=== PATIENT | female | born 1960 | race Caucasian/White ===

== ENCOUNTER 2019-04-02 09:12 | Observation (INO) ==
--- OUTSIDE RECORDS SUMMARY | 2019-04-02 09:17 | External Medical Summary | Continuity of Care Document ---
:1960 Author Name Rc Rivera, Provider Address Unavailable Unavailable , Care Team Providers Name Role Phone Unavailable Unavailable Unavailable CassieMaria Isabel Evans Unavailable [email or web address] Unavailable Unavailable Unavailable Unavailable Unavailable Problems Dyslipidemia (272.4) (E78.5) Diabetes mellitus (250.00) (E11.9) Dysuria (788.1) (R30.0) Allergies and Adverse Reactions No Known Drug Allergies (Allergy) Medications Amaryl 2 MG Oral Tablet; TAKE 1 TABLET DAILY WITH BREAKFAST. , M.D. Refills: 0 Advil CAPS; TAKE CAPSULE PRN , M.D. Refills: 0 Vitamin B Complex CAPS , M.D. Refills: 0 Vitamin B12 TABS , M.D. Refills: 0 Vitamin D3 5000 UNIT Oral Tablet , M.D. Refills: 0 metFORMIN HCl - 500 MG Oral Tablet; TAKE 2 TABLETS TWI CE DAILY CassieFORTUNATO Start: 17-May-2011 Quantity: 120 Refills: 5 OneTouch Test STRP; patient test 4-6 times daily. Tano Matthews Start: 17-May-2011 Quantity: 2 100 EA Box Refills: 5 OneTouch UltraSoft Lancets; tests 6 times a day. JAYLA Matthews NP Start: 17-May-2011 Quantity: 2 100 EA Box Refills: 5 Ciprofloxacin HCl - 500 MG Oral Tablet; TAKE 1 TABLET EVERY 12 HOURS FOR 10 DAYS. FORTUNATO Matthews Start: 26-Nov-2011 Quantity: 20 Refills: 0 Procedures Procedures not documented Immunizations Immunizations not documented Social History - Smoking Status Smoker. current status unknown Plan of Treatment Planned Observations Planned Goals not documented Results No Known Results Results not documented
--- NOTE | 2019-04-02 09:52 | XRay Report ---
SINGLE VIEW CHEST CLINICAL HISTORY: Stroke-like symptoms. FINDINGS: An AP, portable, upright chest radiograph is obtained. No prior studies are available for c omparison at the time of dictation. The examination is degraded by portable technique and patient rot ation. The cardiomediastinal silhouette is unremarkable. The lungs and pleural spaces are clear. No pneumothorax is seen. The bony thorax is grossly intact. IMPRESSION: No active disease in the chest. Electronically signed by: Shukri Trinh M.D. 04/02/2019 9:51 AM
[2019-04-02 09:54] LABS: Basophils # (auto) 0.03 K/uL (0-0.2); Basophils % (auto) 0.6 %; Eosinophils # (auto) 0.09 K/uL (0-0.5); Eosinophils % (auto) 1.8 %; Hematocrit (blood only) 41.8 % (37-47); Hemoglobin 14.6 g/dL (12.0-16.0); Lymphocytes # (auto) 1.54 K/uL (1.2-3.4); Mean Corpuscular Hgb Conc 34.9 g/dL (32-36); Mean Corpuscular Volume 79.2 fL (80-100); Mean Platelet Volume 8.8 fL (7.4-10.4); Monocytes # (auto) 0.37 K/uL (0.11-0.59); Monocytes % (auto) 7.2 %; Neutrophils # (auto) 3.11 K/uL (1.4-6.5); Neutrophils % (auto) 60.4 %; Platelet Count 250 K/uL (130-400); RDW Coefficient of Variation 14.9 % (11.5-14.5); RDW Standard Deviation 43.2 fL (36.4-46.3); Red Blood Count 5.28 M/uL (4.2-5.4); White Blood Count 5.14 K/uL (4.8-10.8)
[2019-04-02 10:06] LABS: Partial Thromboplastin Ratio 1.1; Partial Thromboplastin Time 29.3 Seconds (21.0-31.0); Prothrombin Time 10.4 Seconds (9.0-12.0)
[2019-04-02 10:09] LABS: Alanine Aminotransferase 21 U/L (12-78); Albumin Level 4.1 gm/dl (3.4-5.0); Aspartate Aminotransferase 12 U/L (15-37); BUN Creatinine Ratio 23.8 (10-20); Blood Urea Nitrogen 15 mg/dl (7-18); Calcium 9.1 mg/dl (8.5-10.1); Carbon Dioxide 24 mmol/L (21-32); Chloride 106 mmol/L (98-107); Creatinine Clr Calc Pharmacy 89.7 ml/min; Est GFR (African American) 116.2; Est GFR (Non-African American) 100.3; Glucose 157 mg/dl (70-99); Magnesium 2.1 mg/dl (1.8-2.4); Potassium 3.9 mmol/L (3.5-5.1); Sodium 138 mmol/L (136-145)
--- NOTE | 2019-04-02 10:10 | CT Scan Report ---
HEAD CT NONCONTRAST CT DOSE: 537.48 mGy.cm HISTORY: Stroke symptoms. Stroke evaluation TECHNIQUE: Multiaxial CT images of the head were performed without the use of intravenous contrast. A utomated exposure control was utilized for this study. A dose lowering technique was utilized adheri ng to the principles of ALARA. Comparison: None. Findings: The paranasal sinuses and mastoid air cells are clear. The calvarium and skull base are int act. The ventricles and sulci are within normal limits. There is no mass, hematoma, midline shift, or acute infarct. Impression: No acute intracranial abnormality. Electronically signed by: Lazaro Parry M.D. 04/02/2019 10:09 AM
[2019-04-02 10:14] LABS: Albumin Globulin Ratio 1.3 (0.9-2); Alkaline Phosphatase 37 U/L (45-117); Bilirubin,Total 0.4 mg/dl (0.2-1); Globulin 3.1 gm/dl (2.5-4.0); Total Protein 7.2 gm/dl (6.4-8.2); Troponin I < 0.015 ng/ml (0-0.045)
[2019-04-02] MEDS ORDERED: KETOROLAC TROMETHAMINE 15 MG/ML VIAL IV ONE (11:15)
[2019-04-02] MEDS ORDERED: ASPIRIN CHEW 324 MG PO STA (11:15)
[2019-04-02 11:38] LABS: Appearance Urine Clear (Clear); Bilirubin Urine Negative (Negative); Blood Urine Negative (Negative); Color Urine Yellow; Glucose Urine UA Negative (Negative); Ketones Urine 1+ (Negative); Leukocyte Esterase Urine Negative (Negative); Nitrite Urine Negative (Negative); Protein Urine Negative (Negative); Specific Gravity Urine 1.014 (1.000-1.030); Urobilinogen Urine Negative (Negative); pH Urine 5.5 (4.5-7.5)
--- NOTE | 2019-04-02 14:05 | History & Physical Report ---
Date of Service April 02, 2019 Assessment & Plan (1) TIA (transient ischemic attack): Presented with the strokelike symptoms like slurred speech, difficulty finding words, following instructions Associated with tunnel vision All the symptoms resolved in the emergency room Noted to have very high blood pressure on presentation of systolic 196 and diastolic 82 TIA and rule out stroke admit to telemetry Carotid ultrasound to rule out stenosis, transthoracic echo and MRI of the brain will be done Check lipid profile in a.m. Received aspirin in the emergency room and like to be continued as an outpatient Neurology consult Present on Admission?: Yes (2) Migraine: History of migraine Usually gets worse in the form of tunnel vision Controlled with ibuprofen Current presentation may be secondary to migrainous aura (3) Diet-controlled diabetes mellitus: Has been on a special diet to control diabetes Cannot tolerate any oral medication Will check hemoglobin A1c Has lost about 15 pounds since last 1 (4) Hypertension: No history of hypertension Noted to have very high blood pressure on presentation of systolic more than 1 90 Blood pressure has been coming down Will not put any medications for now DVT prophylaxis SCDs CODE STATUS Full History of Present Illness Chief Complaint: Slurred speech, difficulty finding words with tunnel vision Primary Care Provider: Faustino Mason MD very high blood pressureShe is 58 years old female with significant past medical history of diet-controlled diabetes on a weight reducing diet, migraine and strong family history of stroke has been complaining of tunnel vision associated with slurred speech and difficulty in finding 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 This time she has had before in the form of tunnel vision and did not go away with use of ibuprofen and associated with slurred speech, difficulty in finding words for about an hour. He did not have any other neuro symptoms associated with it, denies any weakness involving any side but did complain numbness involving the right fingers and bilateral legs. No nausea no vomiting and no problem with ambulation. In the ER she was noted to have a very high blood pressure of 196/82 She was admitted to telemetry unit for continuation of care Allergies Allergy/AdvReac Type Severity Reaction Status Date / Time No Known Allergies Allergy Unknown Verified 04/02/19 09:58 Home Medications Home Medications Medication Instructions Recorded Confirmed Type ibuprofen [Advil] 200 mg PO Q6H PRN 04/02/19 04/02/19 History Past Med/Surg History Medical History Diet-controlled diabetes mellitus Migraine (Chronic) Social History Preferred Language: Puerto Rican Feels Safe at Home: Yes Smoking Status: Never smoker Review of Systems Review of Systems: All systems reviewed & are unremarkable except as noted in HPI & below Physical Exam Physical Exam: No apparent distress at rest Constitutional: well developed and well nourished; no acute distress and not ill appearing Eyes: PERRL, conjunctivae normal, anicteric sclerae ENMT: external ear and nose normal, oropharynx normal Neck: trachea midline, no thyromegaly Respiratory: normal respiratory effort; no respiratory distress Cardiovascular: Rate/Rhythm: regular rate and regular rhythm Heart Sounds: no murmur Gastrointestinal (Abdomen): Inspection/Auscultation: abdomen normal to inspection Musculoskeletal: No acute arthritis involving any joints Neurologic: moves all extremities; no focal motor deficits Speech / Cognition: normal speech Alert, awake and oriented x3. Psychiatric: A+Ox3, euthymic affect Lymphatic: no cervical or axillary lymphadenopathy Results & Data Vital Signs (Past 12 Hours) Vital Signs Temp Pulse Pulse Resp BP BP Pulse Ox 04/02/19 13:42 69 20 162/84 H 99 04/02/19 11:14 87 16 155/97 H 98 04/02/19 09:15 36.6 C 83 18 196/82 H 99 Laboratory Results Short CBC 04/02/19 Range/Units 09:41 WBC 5.14 (4.8-10.8) K/uL Hgb 14.6 (12.0-16.0) g/dL Hct 41.8 (37-47) % Plt Count 250 (130-400) K/uL BMP 04/02/19 09:41 Sodium 138 Potassium 3.9 Chloride 106 Carbon Dioxide 24 BUN 15 Creatinine 0.63 Glucose 157 H Calcium 9.1 Cardiac Enzymes 04/02/19 Range/Units 09:41 Troponin I < 0.015 (0-0.045) ng/ml Liver Function 04/02/19 Range/Units 09:41 Total Bilirubin 0.4 (0.2-1) mg/dl AST 12 L (15-37) U/L ALT 21 (12-78) U/L Alkaline Phosphatase 37 L (45-117) U/L Albumin 4.1 (3.4-5.0) gm/dl Urine 04/02/19 Range/Units 11:26 Urine Color Yellow Urine Appearance Clear (Clear) Urine pH 5.5 (4.5-7.5) Ur Specific [place] 1.014 (1.000-1.030) Urine Protein Negative (Negative) Urine Glucose (UA) Negative (Negative) Code Status & VTE Plan VTE Prophylaxis Plan VTE Prophylaxis will be ordered: Yes
--- NOTE | 2019-04-02 14:05 | Emergency Department Note ---
Entered by Tayler Collazo acting as a scribe for Raheem Anderson DO History of Present Illness General Chief complaint: Neuro Symptoms/Deficit Stated complaint: POSSIBLE MINI STROKE Source: patient History of Present Illness Provider complaint: headache Onset (ago): day(s) 1 Location: head Severity: similar to prior episodes Pain Consistency: + constant Maximum Pain Intensity: 0 Relieved By: not by medication (Advil) Associated symptoms: + confusion and + other (+numbness right fingers, +di fficulty finding words, +blurred vision) The patient is a 58 year old female who presents to the Emergency Room with complaints of a constant headache. The patient states that yesterday at 1700 she developed a migraine that caused slight blurred vision. 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 The patient states that after she started to develop confusion and numbness in her right fingers on the palm side. She reports that she could not develop words, which is unusual. She notes that she currently does not have a headache, but she still is having difficulty finding words. The patient reports that she has a history of migraines and that her blurred vision is normal during her episodes. She denies any other symptoms. She reports that she does not take any blood pressure medication. Home Medications Home Medications Medication Instructions Recorded Confirmed Type ibuprofen [Advil] 200 mg PO Q6H PRN 04/02/19 04/02/19 History Allergies Allergy/AdvReac Type Severity Reaction Status Date / Time No Known Allergies Allergy Unknown Verified 04/02/19 09:58 Past Med/Surg History Medical History Diet-controlled diabetes mellitus Migraine (Chronic) Social History Preferred Language: Nepali Feels Safe at Home: Yes Smoking Status: Never smoker Review of Systems See HPI for pertinent positives & negatives. and A total of 10 systems reviewed and were otherwise negative Physical Exam Vital Signs Vital Signs - 24 hr 04/02/19 09:15 04/02/19 11:14 04/02/19 13:42 Temperature 36.6 C Temperature Source Oral Sepsis Recent Fever Within 48 Hours No Sepsis Action Taken by Nursing No Action Required Pulse Rate 83 Pulse Rate [Apical] 87 69 Respiratory Rate 18 16 20 Respiratory Effort / Characteristics Non-Labored Respiratory Depth Normal Respiratory Pattern Regular Blood Pressure 196/82 H Blood Pressure [Left Arm] 155/97 H 162/84 H Blood Pressure Mean 120 Blood Pressure Mean [Left Arm] 116 110 Pulse Oximetry 99 98 99 Oxygen Delivery Method Room Air Room Air Room Air GENERAL: alert, sitting up in bed, talking in full sentences, wearing glasses EYE EXAM: normal conjunctiva OROPHARYNX: no exudate, no erythema, lips, buccal mucosa, and tongue normal and mucous membranes are moist NECK: supple, no nuchal rigidity, no adenopathy, non-tender LUNGS: Clear to auscultation. Normal chest wall mechanics HEART: no murmurs, S1 normal and S2 normal ABDOMEN: abdomen soft, non-tender, normo-active bowel sounds, no masses, no rebound or guarding. BACK: Back is symmetrical on inspection and there is no deformity, no midline tenderness, no CVA tenderness. SKIN: no rashes and no bruising UPPER EXTREMITIES: upper extremities are grossly normal. LOWER EXTREMITIES: No pitting edema. NEURO EXAM: Normal sensorium, cranial nerves II-XII intact, normal speech, no weakness of arms, no weakness of legs. No drift. Finger to nose intact. Gross sensation intact. Course ED COURSE: Vital signs were reviewed and showed hypertension. The patients medical record was reviewed The above diagnostic studies were performed and reviewed. ED treatments and interventions as stated above. 0927: The patient was evaluated in room B9. A complete history and physical examination was performed. 1130: I reevaluated the patient and her symptoms has resolved. 1215: I discussed the patient's case with Radha Bassett PA-C [facility], [facility] will accept the patient for further evaluation. 1225: I reevaluated the patient with Dr. Lewis [facility], at bedside, the patient is unsure if she wants to stay as inpatient. 1230: Upon reevaluation, the patient is resting comfortably. I discussed my findings with the patient and she understands and agrees with the treatment plan. Based on the patients age, coexisting illnesses, exam and lab findings the decision to treat as an inpatient was made. The patient remained stable while under my care. The patient will be evaluated for further management. Administered Medications Discontinued Medications Aspirin (Aspirin) 324 mg PO NOW STA Stop: 04/02/19 11:16 Last Admin: 04/02/19 11:20 Dose: 324 mg Documented by: [id number] Ketorolac Tromethamine (Toradol) 15 mg IV NOW ONE Stop: 04/02/19 11:16 Last Admin: 04/02/19 11:20 Dose: 15 mg Documented by: [id number] Medical Decision Making Differential Diagnosis Differential Diagnosis includes but is not limited to dehydration, stroke, anemia, hypoglycemia, hyponatremia, hypernatremia, urinary tract infection, pneumonia, bronchitis, sepsis, gastroenteritis, additional abdominal pathology, metabolic abnormalities and infections. Medical Records Attestation: I reviewed the patient's medical records. Home Medications Current Medication List: was personally reviewed by me Laboratory Data Attestation: I reviewed the patient's lab results. Result diagrams: 04/02/19 09:41 04/02/19 09:41 Lab Results 04/02/19 04/02/19 04/02/19 Range/Units 09:40 09:41 09:41 WBC 5.14 (4.8-10.8) K/uL RBC 5.28 (4.2-5.4) M/uL Hgb 14.6 (12.0-16.0) g/dL Hct 41.8 (37-47) % MCV 79.2 L (80-100) fL MCH 27.7 (25-34) pg MCHC 34.9 (32-36) g/dL RDW Std Deviation 43.2 (36.4-46.3) fL RDW Coeff of Shanique 14.9 H (11.5-14.5) % Plt Count 250 (130-400) K/uL MPV 8.8 (7.4-10.4) fL Immature Gran % (Auto) 0.0 % Neut % (Auto) 60.4 % Lymph % (Auto) 30.0 % [place] % (Auto) 7.2 % Eos % (Auto) 1.8 % Baso % (Auto) 0.6 % Immature Gran # (Auto) 0.00 (0.00-0.02) K/uL Neut # (Auto) 3.11 (1.4-6.5) K/uL Lymph # (Auto) 1.54 (1.2-3.4) K/uL [place] # (Auto) 0.37 (0.11-0.59) K/uL Eos # (Auto) 0.09 (0-0.5) K/uL Baso # (Auto) 0.03 (0-0.2) K/uL PT 10.4 (9.0-12.0) Seconds INR 1.0 (0.9-1.1) APTT 29.3 (21.0-31.0) Seconds PTT Ratio 1.1 Sodium (136-145) mmol/L Potassium (3.5-5.1) mmol/L Chloride (98-107) mmol/L Carbon Dioxide (21-32) mmol/L Anion Gap (3-11) BUN (7-18) mg/dl Creatinine (0.6-1.2) mg/dl Est Cr Clr Drug Dosing ml/min Est GFR ( Amer) Est GFR (Non-Af Amer) BUN/Creatinine Ratio (10-20) Glucose (70-99) mg/dl POC Glucose 159 H (70-99) Calcium (8.5-10.1) mg/dl Magnesium (1.8-2.4) mg/dl Total Bilirubin (0.2-1) mg/dl AST (15-37) U/L ALT (12-78) U/L Alkaline Phosphatase (45-117) U/L Troponin I (0-0.045) ng/ml Total Protein (6.4-8.2) gm/dl Albumin (3.4-5.0) gm/dl Globulin (2.5-4.0) gm/dl Albumin/Globulin Ratio (0.9-2) Urine Color Urine Appearance (Clear) Urine pH (4.5-7.5) Ur Specific [place] (1.000-1.030) Urine Protein (Negative) Urine Glucose (UA) (Negative) Urine Ketones (Negative) Urine Blood (Negative) Urine Nitrite (Negative) Urine Bilirubin (Negative) Urine Urobilinogen (Negative) Ur Leukocyte Esterase (Negative) POC Ur Test (NEG) 04/02/19 04/02/19 04/02/19 Range/Units 09:41 11:26 11:26 WBC (4.8-10.8) K/uL RBC (4.2-5.4) M/uL Hgb (12.0-16.0) g/dL Hct (37-47) % MCV (80-100) fL MCH (25-34) pg MCHC (32-36) g/dL RDW Std Deviation (36.4-46.3) fL RDW Coeff of Shanique (11.5-14.5) % Plt Count (130-400) K/uL MPV (7.4-10.4) fL Immature Gran % (Auto) % Neut % (Auto) % Lymph % (Auto) % [place] % (Auto) % Eos % (Auto) % Baso % (Auto) % Immature Gran # (Auto) (0.00-0.02) K/uL Neut # (Auto) (1.4-6.5) K/uL Lymph # (Auto) (1.2-3.4) K/uL [place] # (Auto) (0.11-0.59) K/uL Eos # (Auto) (0-0.5) K/uL Baso # (Auto) (0-0.2) K/uL PT (9.0-12.0) Seconds INR (0.9-1.1) APTT (21.0-31.0) Seconds PTT Ratio Sodium 138 (136-145) mmol/L Potassium 3.9 (3.5-5.1) mmol/L Chloride 106 (98-107) mmol/L Carbon Dioxide 24 (21-32) mmol/L Anion Gap 8.0 (3-11) BUN 15 (7-18) mg/dl Creatinine 0.63 (0.6-1.2) mg/dl Est Cr Clr Drug Dosing 89.7 ml/min Est GFR ( Amer) 116.2 Est GFR (Non-Af Amer) 100.3 BUN/Creatinine Ratio 23.8 H (10-20) Glucose 157 H (70-99) mg/dl POC Glucose (70-99) Calcium 9.1 (8.5-10.1) mg/dl Magnesium 2.1 (1.8-2.4) mg/dl Total Bilirubin 0.4 (0.2-1) mg/dl AST 12 L (15-37) U/L ALT 21 (12-78) U/L Alkaline Phosphatase 37 L (45-117) U/L Troponin I < 0.015 (0-0.045) ng/ml Total Protein 7.2 (6.4-8.2) gm/dl Albumin 4.1 (3.4-5.0) gm/dl Globulin 3.1 (2.5-4.0) gm/dl Albumin/Globulin Ratio 1.3 (0.9-2) Urine Color Yellow Urine Appearance Clear (Clear) Urine pH 5.5 (4.5-7.5) Ur Specific [place] 1.014 (1.000-1.030) Urine Protein Negative (Negative) Urine Glucose (UA) Negative (Negative) Urine Ketones 1+ H (Negative) Urine Blood Negative (Negative) Urine Nitrite Negative (Negative) Urine Bilirubin Negative (Negative) Urine Urobilinogen Negative (Negative) Ur Leukocyte Esterase Negative (Negative) POC Ur Test NEG (NEG) Imaging Data Radiologist's Impression: Radiology results as stated below per my review and the radiologist's interpretation: HEAD CT NONCONTRAST CT DOSE: 537.48 mGy.cm HISTORY: Stroke symptoms. Stroke evaluation TECHNIQUE: Multiaxial CT images of the head were performed without the use of intravenous contrast. Automated exposure control was utilized for this study. A dose lowering technique was utilized adhering to the principles of ALARA. Comparison: None. Findings: The paranasal sinuses and mastoid air cells are clear. The calvarium and skull base are intact. The ventricles and sulci are within normal limits. There is no mass, hematoma, midline shift, or acute infarct. Impression: No acute intracranial abnormality. Electronically signed by: Lazaro Parry M.D. 04/02/2019 10:09 AM SINGLE VIEW CHEST CLINICAL HISTORY: Stroke-like symptoms. FINDINGS: An AP, portable, upright chest radiograph is obtained. No prior studies are available for comparison at the time of dictation. The examination is degraded by portable technique and patient rotation. The cardiomediastinal silhouette is unremarkable. The lungs and pleural spaces are clear. No pneumothorax is seen. The bony thorax is grossly intact. IMPRESSION: No active disease in the chest. Electronically signed by: Shukri Trinh M.D. 04/02/2019 9:51 AM ECG Data Attestation: I personally reviewed and interpreted this ECG as follows: Indication: weakness Rate (beats per minute): 75 Rhythm: sinus rhythm Findings: + other (normal axis, intreventricular conduction delay) and + T-wave inversion (septal); no PVC Blood Pressure Blood Pressure Findings: Elevated blood pressure Blood Pressure Disposition: further management by hospitalist MDM Narrative Patient is a 58-year-old female who presents the ER for blurry vision in the peripheral associated with word finding and some paresthesias on the tips of her right fingers on the palmar surface. She does have a history of migraines with aura which entails blurry vision. She does have a mild headache. She is never had any of the other symptoms. She is neurologically intact. EKG was nondiagnostic. IV was established blood work was obtained showed no significant leukocytosis or anemia. INR was unremarkable. BMP along with LFTs bilirubin and troponin was negative. UA was negative. was negative. CT of the head showed no acute pathology. Chest x-ray without any focal infiltrate. Patient was given IV fluids and IV Toradol. She had complete resolution of her symptoms. She was given oral aspirin. Based on her symptoms I was concerned that this could have been a TIA. I did discuss with neurology and they recommended inpatient work-up at this time. Patient was updated bedside. Initially she wanted to leave but she was eventually agreeable to staying for stroke work-up. Discussed with Pt concerning signs and symptoms to watch out f or. Pt was instructed to follow up with their PCP and discussed with the patient their option to return to the ED at anytime for persistent or worsening symptoms. The appropriate anticipatory guidance and out-patient management, including indications for return to the emergency department, were explained at length to the patient and understood. Impression & Plan TIA (transient ischemic attack), Blurred vision Discharge Plan Visit Data Chief Complaint: Neuro Symptoms/Deficit Stated Complaint: POSSIBLE MINI STROKE ED Provider: Raehem Anderson Discharge Problem: TIA (transient ischemic attack), Blurred vision Patient Disposition: Home - Self-Care Forms Stand Alone Forms: My [facility], Important Visit Information Prescriptions Prescriptions: No Action ibuprofen [Advil] 200 mg Tablet 200 mg PO Q6H PRN (Reason: Pain) RF: 0 Referrals Referrals: Faustino Mason MD [Primary Care Provider] - The scribe's documentation has been prepared under my direction and personally reviewed by me in its entirety. I confirm that the note above accurately reflects all work, treatment, procedures, and medical decision making performed by me.
--- NOTE | 2019-04-02 14:21 | Neurology Consultation ---
Date of Consultation April 02, 2019 Assessment & Plan (1) TIA (transient ischemic attack): 1. MRI with without contrast - r/o stroke 2. carotid doppler- evaluation of vascular issues 3. TTE - heart related issues 4. optimize DM, HTN, HLD LDL <70 5. smoking cessation 6. PT/OT - no current needs 7. aspirin 81 mg - start 8. further recommendations once imaging is complete. Supervising Physician Co-Signing Physician Notes I have seen and discussed above patient with Dr Radha Hernandez, neurology. Pt seen examined. Pt had her typical vis phen that she experiences with her migraine, but had aphasia and tingling R hand with headache lasting greater than 1 hour. Exam is normal. Suspect atypical migraine, but needs vascular momin given new sx and vascular risk factors. MALLIKA Hernandez MD History of Present Illness Reason for Consultation: TIA vs migraine Requesting Physician: Chelle Chino MD Attending Physician: Chelle Chino MD History of Present Illness Heide is a 58 year old female who presented with very high blood pressure to ED. 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 This time she has had before in the form of tunnel vision and did not go away with use of ibuprofen and associated with slurred speech, difficulty in finding words for about an hour. She has not had migraines for about 30 years and this was unlike her typical migraine. denies any weakness involving any side but did complain numbness involving the right fingers and bilateral legs. No nausea no vomiting and no problem with ambulation.In the ER she was noted to have a very high blood pressure of 196/82. She states she has not been compliant with medications for her DM and was trying a new diet. She is a smoker - states social, ETOH use, caffeine minimal. denies CP, SOB, abdominal pain, one sided weakness, numbness tingling, N, V, current vision changes, headache. Allergies Allergy/AdvReac Type Severity Reaction Status Date / Time No Known Allergies Allergy Unknown Verified 04/02/19 09:58 Home Medications Home Medications Medication Instructions Recorded Confirmed Type ibuprofen [Advil] 200 mg PO Q6H PRN 04/02/19 04/02/19 History Patient History Medical History Diet-controlled diabetes mellitus Migraine (Chronic) Social History Preferred Language: Micronesian Communication Ability: Effective Internal Consultant Required: Yes Beliefs That Will Affect Care: None Current Living Situation: Spouse Other Information That Helps Us Care for You: No Feels Safe at Home: Yes Safety Concerns: Feels Safe At This Time Smoking Status: Current some day smoker Tobacco Type: cigarettes ; Do You Dip or Chew Tobacco: No ; Second Hand Exposure: Yes (occasional) ; Tobacco Cessation Education Requested by Patient: No Hx Alcohol Use: No Hx Substance Use: No Physical Exam Physical Exam: Physical Exam: Constitutional: appearance nourished, healthy and normal Ears, Nose, Mouth and Throat: mucous membranes moist, no injection and skin normal, eyes normal Cardiovascular: normal S-1 and S-2 and regular rate and rhythm Respiratory: clear to auscultation (CTA) and no rales, rhonchi or wheeze Musculoskeletal: no peripheral edema and good distal pulses Skin: no stigmata of neurocutaneous disease noted and normal and intact Eyes: extraocular muscles intact (EOMI) and pupils equal, round and reactive to light (PERRL). gross peripheral vision intact NEUROLOGIC EXAMINATION: Mental status: Alert and interactive Oriented to full date and location Oriented to person Speech fluent with no evidence of aphasia Cranial Nerves smile eye brow raise symmetric, tongue midline Reflexes: Deep tendon reflexes were symmetrical and graded 2/5. up going toes Sensory: no deficit to cool or light touch Coordination: Romberg absent Gait/Stance: Posture normal sitting up in bed Motor: Negative for pronator drift of out stretched arms with eyes closed. Strength: biceps triceps hand painter touch up 5/5 bilaterally hip flex patellar planter flex ext 5/5 Results & Data Vital Signs (Past 12 Hours) Vital Signs Temp Pulse Pulse Resp BP BP Pulse Ox 04/02/19 13:42 69 20 162/84 H 99 04/02/19 11:14 87 16 155/97 H 98 04/02/19 09:15 36.6 C 83 18 196/82 H 99 Laboratory Results Abnormal lab results 04/02/19 04/02/19 04/02/19 Range/Units 09:40 09:41 09:41 MCV 79.2 L (80-100) fL RDW Coeff of [place] 14.9 H (11.5-14.5) % BUN/Creatinine Ratio 23.8 H (10-20) Glucose 157 H (70-99) mg/dl POC Glucose 159 H (70-99) AST 12 L (15-37) U/L Alkaline Phosphatase 37 L (45-117) U/L Urine Ketones (Negative) 04/02/19 Range/Units 11:26 MCV (80-100) fL RDW Coeff of [place]ique (11.5-14.5) % BUN/Creatinine Ratio (10-20) Glucose (70-99) mg/dl POC Glucose (70-99) AST (15-37) U/L Alkaline Phosphatase (45-117) U/L Urine Ketones 1+ H (Negative) Diagnostic Findings CXR- No active disease in the chest. CT head- No acute intracranial abnormality.
--- NOTE | 2019-04-02 14:49 | Ultrasound Report ---
BILATERAL CAROTID DOPPLER STUDY HISTORY: Altered mental status. Stroke symptoms. r/o obstruction COMPARISON: None. TECHNIQUE: Real-time, grayscale, and color Doppler sonography of the carotid arteries was performed. Imaging reviewed in the transverse and longitudinal planes. All measurements were calculated based on NASCET criteria. FINDINGS: Antegrade flow is seen in the bilateral vertebral arteries. The brachial pressures are hemodynamically similar. Mild atherosclerotic plaque within the bilateral carotid bulbs. The majority appears to be soft plaqu e. The peak systolic velocity within the right ICA is 125 cm/s. The right systolic ratio is 1.7. The peak systolic velocity within the left ICA is 104 cm/s. The left systolic ratio is 1.4. IMPRESSION: No hemodynamically significant stenosis seen within the carotid arteries. Electronically signed by: Lazaro Parry M.D. 04/02/2019 2:47 PM
[2019-04-02] MEDS ORDERED: GADOBUTROL 65ML VIAL IV PRN (15:52)
--- NOTE | 2019-04-02 16:17 | Magnetic Resonance Report ---
MRI OF THE BRAIN WITHOUT AND WITH IV CONTRAST CLINICAL HISTORY: Severe headache. Speech difficulty. TIA versus stroke. COMPARISON STUDY: Noncontrast head CT dated 04/02/2019 TECHNIQUE: MRI of the brain was performed from the vertex to the skull base utilizing various T1 and T2 weighted sequences. Following the IV administration of 7 mL of Gadavist contrast, additional enhan caleb images were obtained. FINDINGS: Sagittal T1, axial diffusion, proton density and T2 weighted axial, coronal FLAIR, and pre and post a xial T1-weighted images were acquired. These were supplemented with post gadolinium coronal T1 weight ed images. Axial diffusion-weighted images reveal no evidence of acute or subacute infarction. There is no evidence of ventricular dilatation. Proton density T2-weighted and FLAIR images reveal scattered foci of increased T2 signal within the w terrie matter, likely on a small vessel basis. There are no abnormal flow voids. Postcontrast images reveal a 4 mm focus of enhancement within the right occipital lobe. This focus is not confirmed on postcontrast axial images. There is however a corresponding focus of increased sign al on FLAIR imaging. IMPRESSION: 1. No evidence of acute or subacute infarction 2. Nonspecific 4 mm enhancing focus within the right occipital lobe, visualized on postcontrast coron al images, but not confirmed on postcontrast axial images. There is a corresponding focus of increase d FLAIR signal. This could potentially represent a small focus of demyelination. A tiny neoplastic fo cus is within differential but is statistically less likely given the absence of a known primary alvarado gnancy. A follow up MRI study in 3-6 months is recommended. Electronically signed by: Bruce Carlos M.D. 04/02/2019 4:16 PM
[2019-04-02] MEDS ORDERED: IBUPROFEN 200 MG TAB PO PRN (16:21)
[2019-04-03 06:05] LABS: Basophils # (auto) 0.07 K/uL (0-0.2); Basophils % (auto) 1.4 %; Eosinophils # (auto) 0.14 K/uL (0-0.5); Eosinophils % (auto) 2.8 %; Hematocrit (blood only) 40.8 % (37-47); Hemoglobin 13.7 g/dL (12.0-16.0); Lymphocytes # (auto) 1.81 K/uL (1.2-3.4); Lymphocytes % (auto) 36.3 %; Mean Corpuscular Hgb Conc 33.6 g/dL (32-36); Mean Corpuscular Volume 80.5 fL (80-100); Mean Platelet Volume 8.8 fL (7.4-10.4); Monocytes # (auto) 0.37 K/uL (0.11-0.59); Monocytes % (auto) 7.4 %; Neutrophils # (auto) 2.59 K/uL (1.4-6.5); Neutrophils % (auto) 52.1 %; Platelet Count 224 K/uL (130-400); RDW Standard Deviation 43.7 fL (36.4-46.3); Red Blood Count 5.07 M/uL (4.2-5.4); White Blood Count 4.98 K/uL (4.8-10.8)
[2019-04-03 06:35] LABS: BUN Creatinine Ratio 23.6 (10-20); Calcium 8.6 mg/dl (8.5-10.1); Est GFR (Non-African American) 99.2; Potassium 4.1 mmol/L (3.5-5.1)
[2019-04-03 06:57] LABS: Estimated Average Glucose 203 mg/dl; Hemoglobin A1C 8.7 % (4.5-5.6)
[2019-04-03] MEDS ORDERED: ASPIRIN 81 MG ECTAB PO SCH (09:00)
--- NOTE | 2019-04-03 09:29 | Hospitalist Progress Note ---
Date of Service April 03, 2019 Assessment & Plan (1) TIA (transient ischemic attack): Admitting service notes: Presented with the strokelike symptoms like slurred speech, difficulty finding words, following instructions Associated with tunnel vision All the symptoms resolved in the emergency room Noted to have very high blood pressure on presentation of systolic 196 and diastolic 82 Brain MRI: 1. No evidence of acute or subacute infarction 2. Nonspecific 4 mm enhancing focus within the right occipital lobe, visualized on postcontrast coronal images, but not confirmed on postcontrast axial images. There is a corresponding focus of increased FLAIR signal. This could potentially represent a small focus of demyelination. A tiny neoplastic focus is within differential but is statistically less likely given the absence of a known primary malignancy. A follow up MRI study in 3-6 months is recommended. Carotid US: No hemodynamically significant stenosis seen within the carotid arteries. Echo: Pending Evaluated by neurologist, Dr. Garcia Symptoms felt to be secondary to mostly atypical migraine Symptoms resolved, did not recur while admitted Blood pressure also improved spontaneously and remained stable Neurology service recommending aspirin 81 mg p.o. daily Continue risk factor control including diabetes, hypertension, dyslipidemia Follow-up with Dr. Garcia in 2 to 3 weeks (2) Migraine: History of migraine Usually gets worse in the form of tunnel vision Controlled with ibuprofen Symptoms felt to be secondary to atypical migraine Continue follow-up with the neurology (3) Diet-controlled diabetes mellitus: Has been on a special diet to control diabetes Cannot tolerate any oral medication A1c 8.7, patient reports that this is better compared to previous A1c but could not recall the exact figure She is not yet open to oral diabetic agents at this time Discussed complications of uncontrolled diabetes and she understands She would like to finish present diet program prior to entertaining possibility of starting oral antidiabetic medications (4) Hypertension: No history of hypertension Noted to have very high blood pressure on presentation of systolic more than 1 90 Blood pressure improved spontaneously while admitted Continue to monitor as an outpatient (5) Dyslipidemia: LDL 161 HDL 46 Triglyceride 128 Total cholesterol 233 Patient also not keen on starting any lipid controlling agents at this time Urged to continue exercise, diet Will up with primary care physician within a week, Scheduling office close today, patient will be called for the appointment Follow-up with neurologist Dr. Garcia in 2 to3 weeks Case discussed in detail at length with patient All questions answered She is agreeable and comfortable with the plan of care Subjective Follow-up for strokelike symptoms Seen resting in bed, comfortable, not in distress, in good spirits States she feels better overall today No recurrence of strokelike symptoms Denies headache, change in vision, dizziness, chest pain, shortness of breath, palpitations, aphasia, focal weakness or numbness She is ambulating with no problems She is back to her baseline Denies other symptoms StatesShe is ready would like to be discharged today Review of Systems Review of Systems: All systems reviewed & are unremarkable except as noted in HPI & below Physical Exam Physical Exam: General- oriented x 3, not in distress, speaks in sentences with no effort or accessory muscle use Head- atraumatic Eyes- PERRL, EOMI, anicteric ENT- oropharynx clear Neck- supple, no JVD, no adenopathy, no thyromegaly; carotids +2/2, no bruits appreciated Lungs- clear to auscultation bilaterally, no rales/wheezes Heart- normal rate, regular rhythm; no murmur, no gallop, no rub appreciated Abdomen- normal bowel sounds, nondistended, soft, nontender, no masses or hepatosplenomegaly Extremities- no pretibial edema, no calf tenderness; peripheral pulses intact Neuro- alert, oriented x 3; CN 2-12 grossly intact; motor 5/5 bilaterally;sensation 100% on all extremities; no other gross focal neurologic deficits Skin- warm & dry Results & Data Vital Signs (Past 12 Hours) Vital Signs Temp Pulse Resp BP Pulse Ox 04/03/19 07:08 36.5 C 72 17 126/77 98 04/03/19 03:55 36.7 C 66 18 137/75 96 04/02/19 23:19 36.7 C 72 18 151/76 H 97 Laboratory Results Laboratory Results - last 24 hr 04/02/19 04/02/19 04/02/19 09:40 09:41 09:41 WBC 5.14 RBC 5.28 Hgb 14.6 Hct 41.8 MCV 79.2 L MCH 27.7 MCHC 34.9 RDW Std Deviation 43.2 RDW Coeff of Shanique 14.9 H Plt Count 250 MPV 8.8 Immature Gran % (Auto) 0.0 Neut % (Auto) 60.4 Lymph % (Auto) 30.0 Casey % (Auto) 7.2 Eos % (Auto) 1.8 Baso % (Auto) 0.6 Immature Gran # (Auto) 0.00 Neut # (Auto) 3.11 Lymph # (Auto) 1.54 Casey # (Auto) 0.37 Eos # (Auto) 0.09 Baso # (Auto) 0.03 PT 10.4 INR 1.0 APTT 29.3 PTT Ratio 1.1 Sodium Potassium Chloride Carbon Dioxide Anion Gap BUN Creatinine Est Cr Clr Drug Dosing Est GFR ( Amer) Est GFR (Non-Af Amer) BUN/Creatinine Ratio Glucose POC Glucose 159 H Estimat Average Glucose Hemoglobin A1c Calcium Magnesium Total Bilirubin AST ALT Alkaline Phosphatase Troponin I Total Protein Albumin Globulin Albumin/Globulin Ratio Triglycerides Cholesterol LDL Cholesterol, Calc VLDL Cholesterol, Calc HDL Cholesterol Cholesterol/HDL Ratio Urine Color Urine Appearance Urine pH Ur Specific [place] Urine Protein Urine Glucose (UA) Urine Ketones Urine Blood Urine Nitrite Urine Bilirubin Urine Urobilinogen Ur Leukocyte Esterase POC Ur Test Hepatitis C Ab Screen 04/02/19 04/02/19 04/02/19 09:41 11:26 11:26 WBC RBC Hgb Hct MCV MCH MCHC RDW Std Deviation RDW Coeff of [place] Plt Count MPV Immature Gran % (Auto) Neut % (Auto) Lymph % (Auto) Casey % (Auto) Eos % (Auto) Baso % (Auto) Immature Gran # (Auto) Neut # (Auto) Lymph # (Auto) Casey # (Auto) Eos # (Auto) Baso # (Auto) PT INR APTT PTT Ratio Sodium 138 Potassium 3.9 Chloride 106 Carbon Dioxide 24 Anion Gap 8.0 BUN 15 Creatinine 0.63 Est Cr Clr Drug Dosing 89.7 Est GFR ( Amer) 116.2 Est GFR (Non-Af Amer) 100.3 BUN/Creatinine Ratio 23.8 H Glucose 157 H POC Glucose Estimat Average Glucose Hemoglobin A1c Calcium 9.1 Magnesium 2.1 Total Bilirubin 0.4 AST 12 L ALT 21 Alkaline Phosphatase 37 L Troponin I < 0.015 Total Protein 7.2 Albumin 4.1 Globulin 3.1 Albumin/Globulin Ratio 1.3 Triglycerides Cholesterol LDL Cholesterol, Calc VLDL Cholesterol, Calc HDL Cholesterol Cholesterol/HDL Ratio Urine Color Yellow Urine Appearance Clear Urine pH 5.5 Ur Specific [place] 1.014 Urine Protein Negative Urine Glucose (UA) Negative Urine Ketones 1+ H Urine Blood Negative Urine Nitrite Negative Urine Bilirubin Negative Urine Urobilinogen Negative Ur Leukocyte Esterase Negative POC Ur Test NEG Hepatitis C Ab Screen 04/02/19 04/02/19 04/03/19 16:40 20:49 05:39 WBC RBC Hgb Hct MCV MCH MCHC RDW Std Deviation RDW Coeff of [place] Plt Count MPV Immature Gran % (Auto) Neut % (Auto) Lymph % (Auto) Casey % (Auto) Eos % (Auto) Baso % (Auto) Immature Gran # (Auto) Neut # (Auto) Lymph # (Auto) Casey # (Auto) Eos # (Auto) Baso # (Auto) PT INR APTT PTT Ratio Sodium Potassium Chloride Carbon Dioxide Anion Gap BUN Creatinine Est Cr Clr Drug Dosing Est GFR ( Amer) Est GFR (Non-Af Amer) BUN/Creatinine Ratio Glucose POC Glucose 126 H 123 H Estimat Average Glucose 203 Hemoglobin A1c 8.7 H Calcium Magnesium Total Bilirubin AST ALT Alkaline Phosphatase Troponin I Total Protein Albumin Globulin Albumin/Globulin Ratio Triglycerides Cholesterol LDL Cholesterol, Calc VLDL Cholesterol, Calc HDL Cholesterol Cholesterol/HDL Ratio Urine Color Urine Appearance Urine pH Ur Specific [place] Urine Protein Urine Glucose (UA) Urine Ketones Urine Blood Urine Nitrite Urine Bilirubin Urine Urobilinogen Ur Leukocyte Esterase POC Ur Test Hepatitis C Ab Screen 04/03/19 04/03/19 04/03/19 05:39 05:39 05:39 WBC 4.98 RBC 5.07 Hgb 13.7 Hct 40.8 MCV 80.5 MCH 27.0 MCHC 33.6 RDW Std Deviation 43.7 RDW Coeff of Shan[place] 15.0 H Plt Count 224 MPV 8.8 Immature Gran % (Auto) 0.0 Neut % (Auto) 52.1 Lymph % (Auto) 36.3 Casey % (Auto) 7.4 Eos % (Auto) 2.8 Baso % (Auto) 1.4 Immature Gran # (Auto) 0.00 Neut # (Auto) 2.59 Lymph # (Auto) 1.81 Casey # (Auto) 0.37 Eos # (Auto) 0.14 Baso # (Auto) 0.07 PT INR APTT PTT Ratio Sodium 141 Potassium 4.1 Chloride 108 H Carbon Dioxide 29 Anion Gap 4.0 BUN 15 Creatinine 0.65 Est Cr Clr Drug Dosing 87.0 Est GFR ( Amer) 115.0 Est GFR (Non-Af Amer) 99.2 BUN/Creatinine Ratio 23.6 H Glucose 124 H POC Glucose Estimat Average Glucose Hemoglobin A1c Calcium 8.6 Magnesium Total Bilirubin AST ALT Alkaline Phosphatase Troponin I Total Protein Albumin Globulin Albumin/Globulin Ratio Triglycerides 128 Cholesterol 233 H LDL Cholesterol, Calc 161 VLDL Cholesterol, Calc 26 HDL Cholesterol 46 Cholesterol/HDL Ratio 5 Urine Color Urine Appearance Urine pH Ur Specific [place] Urine Protein Urine Glucose (UA) Urine Ketones Urine Blood Urine Nitrite Urine Bilirubin Urine Urobilinogen Ur Leukocyte Esterase POC Ur Test Hepatitis C Ab Screen Neg 04/03/19 07:11 WBC RBC Hgb Hct MCV MCH MCHC RDW Std Deviation RDW Coeff of [place] Plt Count MPV Immature Gran % (Auto) Neut % (Auto) Lymph % (Auto) Casey % (Auto) Eos % (Auto) Baso % (Auto) Immature Gran # (Auto) Neut # (Auto) Lymph # (Auto) Casey # (Auto) Eos # (Auto) Baso # (Auto) PT INR APTT PTT Ratio Sodium Potassium Chloride Carbon Dioxide Anion Gap BUN Creatinine Est Cr Clr Drug Dosing Est GFR ( Amer) Est GFR (Non-Af Amer) BUN/Creatinine Ratio Glucose POC Glucose 126 H Estimat Average Glucose Hemoglobin A1c Calcium Magnesium Total Bilirubin AST ALT Alkaline Phosphatase Troponin I Total Protein Albumin Globulin Albumin/Globulin Ratio Triglycerides Cholesterol LDL Cholesterol, Calc VLDL Cholesterol, Calc HDL Cholesterol Cholesterol/HDL Ratio Urine Color Urine Appearance Urine pH Ur Specific [place] Urine Protein Urine Glucose (UA) Urine Ketones Urine Blood Urine Nitrite Urine Bilirubin Urine Urobilinogen Ur Leukocyte Esterase POC Ur Test Hepatitis C Ab Screen
--- NOTE | 2019-04-03 10:02 | Discharge Summary ---
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 This time she has had before in the form of tunnel vision and did not go away with use of ibuprofen and associated with slurred speech, difficulty in finding words for about an hour. He did not have any other neuro symptoms associated with it, denies any weakness involving any side but did complain numbness involving the right fingers and bilateral legs. No nausea no vomiting and no problem with ambulation. 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 Discharge Data Allergies Allergy/AdvReac Type Severity Reaction Status Date / Time No Known Allergies Allergy Unknown Verified 04/02/19 09:58 Consultations 04/02/19 12:33 ED Decision to Admit Stat Ordered Studies 04/02/19 09:26 CT head/brain wo con Stat 04/02/19 13:46 US carotid doppler BI Stat 04/02/19 13:49 MR brain wo/w con Stat Hospital Course (1) TIA (transient ischemic attack): Admitting service notes: Presented with the strokelike symptoms like slurred speech, difficulty finding words, following instructions Associated with tunnel vision All the symptoms resolved in the emergency room Noted to have very high blood pressure on presentation of systolic 196 and diastolic 82 Brain MRI: 1. No evidence of acute or subacute infarction 2. Nonspecific 4 mm enhancing focus within the right occipital lobe, visualized on postcontrast coronal images, but not confirmed on postcontrast axial images. There is a corresponding focus of increased FLAIR signal. This could potentially represent a small focus of demyelination. A tiny neoplastic focus is within differential but is statistically less likely given the absence of a known primary malignancy. A follow up MRI study in 3-6 months is recommended. Carotid US: No hemodynamically significant stenosis seen within the carotid arteries. Echo: Pending Evaluated by neurologist, Dr. Garcia Symptoms felt to be secondary to mostly atypical migraine Symptoms resolved, did not recur while admitted Blood pressure also improved spontaneously and remained stable Neurology service recommending aspirin 81 mg p.o. daily, Follow-up with neurologist clinic in 2 to 3 weeks, Repeat MRI brain in 3 months to evaluate for the right cerebellar Enhancing focus Continue risk factor control including diabetes, hypertension, dyslipidemia (2) Migraine: History of migraine Usually gets worse in the form of tunnel vision Controlled with ibuprofen Symptoms felt to be secondary to atypical migraine Dr. Garcia not recommending any prophylactic agents for migraine headaches at this time Continue follow-up with the neurology Clinic (3) Diet-controlled diabetes mellitus: Has been on a special diet to control diabetes Cannot tolerate any oral medication A1c 8.7, patient reports that this is better compared to previous A1c but could not recall the exact figure She is not yet open to oral diabetic agents at this time Discussed complications of uncontrolled diabetes and she understands She would like to finish present diet program prior to entertaining possibility of starting oral antidiabetic medications (4) Hypertension: No history of hypertension Noted to have very high blood pressure on presentation of systolic more than 1 90 Blood pressure improved spontaneously while admitted Continue to monitor as an outpatient (5) Dyslipidemia: LDL 161 HDL 46 Triglyceride 128 Total cholesterol 233 Patient also not keen on starting any lipid controlling agents at this time Urged to continue exercise, diet Follow-up as an outpatient Follow-upwith primary care physician within a week, Scheduling office close today, patient will be called for the appointment Follow-up with neurologist Dr. Garcia in 2 to3 weeks Case discussed in detail at length with patient All questions answered She is agreeable and comfortable with the plan of care Total Time Total Time Spent Total Time Spent (In Minutes): 50 minutes Discharge Plan Discharge Items Patient Disposition: Home - Self-Care Reason For Visit: TIA/MIGRAINE Discharge Diagnosis: Stroke like symptoms possible atypical migraine Discharge Goals: Diagnostic testing and Therapeutic intervention Activity: As commented below Activity Comment: Resume activity gradually as tolerated, no heavy exertion Lifting: Wait until after follow-up appointment Exercise/Sports: Wait until after follow-up appointment Driving/Machine Use Comment: Always be cautious with driving, do not drive and having symptoms Non-emergency contact: Primary Care Provider Call non-emergency contact if: you have any medication questions and you have a fever Follow-up/Referrals: Faustino Mason MD [Primary Care Provider] - Radha Hernandez MD [Physician] - Diet: Carb Consistent or DM2 and Heart Healthy Addtl Provider Instructions: Follow-up with primary care physician in 1 week. The office will be calling for the appointment. Follow-up with neurologist Dr. Garcia Or NOREEN Ram within 2 to 3 weeks.Please call the clinic for an appointment. Contact information outlined above. Repeat MRI of the brain also recommended in 3 months. Always Follow diabetic diet, [employer] diet. Continue regular exercise. No smoking, alcohol use. Drink plenty of fluids. Who to Call and When: Medical Emergencies: Call 911 immediately if you experience any of the following warning signs and symptoms of Stroke: Sudden numbness or weakness of the face, arm or leg, especially on one side of the body Sudden confusion, trouble speaking or understanding Sudden trouble seeing in one or both eyes Sudden trouble walking, dizziness, loss of balance or coordination Sudden severe headache with no cause Do not delay calling 911 if you experience any warning signs or symptoms of a stroke. Delay in seeking medical attention may affect what treatments can be given to you. Risk Factors for Stroke: You can reduce your chances of stroke by working with your medical provider to adopt a healthy lifestyle. Some specific ways to lower your chance of stroke are: If you are a smoker, now is the time to stop smoking cigarettes If you are diabetic, improve the control of your blood sugars Avoid excessive amounts of alcohol Control high blood pressure Lose weight if you are overweight Be sure to lead an active lifestyle Eat a healthy diet low in salt, cholesterol and fat You should know about other risk factors for stroke that you are unable to control. These include: Age 55 years or older Male gender Certain racial groups: , or / Family History of Stroke, Mini stroke or Heart Attack Sickle Cell Disease It is important for you to keep your follow up appointments with your medical provider. Prescriptions: New aspirin [Ecotrin Low Strength] 81 mg Tablet,Delayed Release (Dr/Ec) 81 mg PO QAM 30 Days Qty: 30 RF: 2 Continued ibuprofen [Advil] 200 mg Tablet 200 mg PO Q6H PRN (Reason: Pain) RF: 0 Stand-Alone Forms: [facility] Discharge Orders: Discharge Order (Routine); Ordered 04/03/19 Ordered By: Robbie Bates Admission Data Admit Date/Time: 04/02/19 13:42 Attending Provider: Robbie Bates Admit Provider: Chelle Chino Primary Care Provider: Faustino Mason Other Providers: Chelle Chino Service: Telemetry
--- NOTE | 2019-04-03 10:05 | Neurology Progress Note ---
Date of Service April 03, 2019 Results & Data Vital Signs (Past 12 Hours) Vital Signs Temp Pulse Resp BP Pulse Ox 04/03/19 07:08 36.5 C 72 17 126/77 98 04/03/19 03:55 36.7 C 66 18 137/75 96 04/02/19 23:19 36.7 C 72 18 151/76 H 97
--- NOTE | 2019-04-03 10:43 | Progress Note ---
DATE: 04/03/2019 HISTORY OF PRESENT ILLNESS: I am seeing the patient in followup of what appears to be a complicated migraine. The patient had her typical binocular visual phenomenon, followed by language dysfunction and some tingling in the right hand, which lasted about an hour. At the onset of visual phenomenon, she took Advil and increased her fluid intake. She is a little vague on when the headache started, but believes she had a bitemporal headache. The visual phenomenon is the same as her typical migraine. Her MRI of the brain showed no acute abnormality. There are minor nonspecific changes in the white matter. There is a nonspecific 4 mm enhancing focus in the right occipital lobe only seen on postcontrast coronal but not confirmed on axial images. Could represent a small focus of demyelination, a tiny neoplastic as the focus is within the differential, but less likely. Follow up MRI recommended in 3-6 months. Carotid ultrasound showed no hemodynamically significant stenosis, mild atherosclerotic plaque. Her echo has not yet been performed. The patient's EKG was possible left atrial enlargement, anterior infarct, age indeterminate. The patient has not had any recurrent neurologic symptoms. PHYSICAL EXAMINATION: VITAL SIGNS: Blood pressure 126/77, pulse 72, respirations 17. NEUROLOGIC: The patient is awake and alert, normal speech and language and naming. There is no visual field cut. Normal motility, facial symmetry. Motor 5/5, no drift. Normal [id number] and [id number]. IMPRESSION AND PLAN: Likely complicated migraine; however, given the patient's vascular risk factors and lack of prior language dysfunction with migraine, I would recommend her taking an enteric-coated aspirin daily and risk factor modification. She is clearly diabetic, which needs to be addressed. Her LDL is 167, which needs to be treated and she should discontinue smoking. The aspirin may be prophylactic for headache; otherwise, I do not think she needs anything prophylactic at present. Regarding the enhancing abnormality on MRI, it is only seen on one image. She does have some nonspecific changes in the white matter. She does not have a history suggestive of demyelinating disease. This abnormality would not explain her neurologic symptoms. My plan is to repeat an MRI of the brain with and without contrast in 3 months. Please refer her to our office for followup with Radha Ram in 2-3 weeks. MARISA
== END 2019-04-03 11:20 | disposition home or self-care (01) ==
LOC: 2S 09:12 → ED 09:12 → SUATTDRO 13:42 → 2S 14:37